=== PATIENT | female | born 1950 | race Caucasian/White ===

== ENCOUNTER → 2018-10-17 | Outpatient (CLI) | payer MEDICARE, OTHER ==
[~2018-10-17] MED LIST: ASP325T PO; ASP81TEC PO; ATEN1TAB3 PO; CATHETER FLUSH 10 ML SYR IV PRN; ERGO400C PO; HCT25T PO; LORA10TA7 PO; MNTL10T PO; MULT1CAP27 PO; NAPR-243 PO; OMEG1CAP51 PO; OMEP-10 PO; OXYB5TAB9 PO; POTA2TAB2 PO; PRAS10TA6 PO; REGADENOSON 0.4 MG/5 ML SYR (LEXISCAN) IV ONE; SIMV40TA4 PO
[2018-10-17 09:21] VITALS: BP 168/96
--- NOTE | 2018-10-17 14:41 | STRESS TEST ---
DATE OF SERVICE: 10/16/2018 RESTING AND POST REGADENOSON TECHNETIUM-99M TETROFOSMIN SPECT CT IMAGING ORDERING PHYSICIAN: Paty Hernandez APRN PRIMARY PHYSICIAN: Dr. Morillo. CLINICAL DIAGNOSES: Coronary artery disease. Baseline images were carried out after injection of 10.08 mCi of technetium-99m Tetrofosmin. This was followed by 0.4 mg regadenoson and 29.2 mCi of technetium-99m Tetrofosmin for stress imaging. The electrocardiogram showed sinus rhythm with subtle, nonspecific ST and T-wave abnormality that did not change significantly with regadenoson infusion. The patient tolerated the procedure well. Review of images at rest and following stress does not indicate significant perfusion defects consistent with significant myocardial ischemia or infarction. Gated images show normal global left ventricular systolic function with normal regional wall motion. Left ventricular ejection fraction is calculated to be 72%. Left ventricular end diastolic volume is 51 mL. TID is absent (1.04). CONCLUSIONS: 1. No evidence of significant myocardial ischemia or infarction on this study. 2. Normal regional wall motion. 3. Normal global left ventricular systolic function with a calculated ejection fraction of 72%. Job ID: [id number] DocumentID: [id number] Dictated Date: 10/17/2018 12:04:54 Chair Post Machine Operator Date: 10/17/2018 14:39:22 Dictated By: ZORA ALEGRIA MD, MA, FACP, FACC,
== END ==
LOC: CARD 06:48
PROVIDERS: ATTEND Nurse Practitioner Family
DX: I25.10 Atherosclerotic heart disease of native coronary artery without angina pectoris (principal); I65.29 Occlusion and stenosis of unspecified carotid artery; E78.5 Hyperlipidemia, unspecified; I10 Essential (primary) hypertension
CPT/HCPCS: 78452; 93017

== ENCOUNTER → 2018-10-24 | Outpatient (CLI) | payer MEDICARE, OTHER ==
[~2018-10-24] MED LIST changes: -CATHETER FLUSH 10 ML SYR IV PRN; +HOLD METFORMIN - RECEIVED CONTRAST 20 ML VIAL IV SCH; +IOHEXOL 350 MG/ML 100 ML (OMNIPAQUE 350) VIAL IV ONE; +NS 100 ML (IVPB) BAG IV ONE; -REGADENOSON 0.4 MG/5 ML SYR (LEXISCAN) IV ONE
[2018-10-24 07:45] LABS: BUN/CREATININE RATIO 24; CREATININE SERUM 0.88 MG/DL (0.60-1.30); GFR ESTIMATED > 60
--- NOTE | 2018-10-24 10:35 | Diagnostic Imaging Report ---
EXAMINATION: CT Chest with intravenous contrast. TECHNIQUE: Multiple contiguous axial images were obtained through the chest after the uneventful administration of intravenous contrast. All CT scans use one or more of the following dose optimizing techniques: automated exposure control, MA and/or KvP adjustment based on a patient size and exam type, or iterative reconstruction. HISTORY: Abnormal pulmonary function test. FINDINGS: No comparison available. The lungs are clear without edema or pneumonia. No pleural effusion or pneumothorax. No suspicious nodules. Heart size is normal. No pericardial effusion. Aorta is normal in caliber. There is no axillary, supraclavicular or mediastinal lymphadenopathy. There are moderate coronary artery calcifications. Limited views of the upper abdomen reveal a few renal cysts. There is a 15 mm indeterminate left adrenal nodule. There are no suspicious osseous lesions. IMPRESSION: 1. Clear lungs. 2. Indeterminate 15 mm left adrenal nodule. In the absence of a prior history of cancer, this is likely benign and a 12-month followup adrenal CT is recommended. Dictated by: Dictated on workstation # [id number]
== END ==
LOC: RAD 07:09
PROVIDERS: ATTEND Nurse Practitioner Family
DX: J98.4 Other disorders of lung (principal); J30.9 Allergic rhinitis, unspecified; E27.8 Other specified disorders of adrenal gland
CPT/HCPCS: 36415; 71260; 82565; 84520

== ENCOUNTER → 2019-12-19 | Outpatient (CLI) | payer MEDICARE, OTHER ==
[~2019-12-19] MED LIST changes: +CATHETER FLUSH 10 ML SYR IV PRN
--- NOTE | 2019-12-19 11:32 | Diagnostic Imaging Report ---
PROCEDURE: CT abdomen with contrast only. TECHNIQUE: Multiple contiguous axial images were obtained through the abdomen after the administration of intravenous contrast. Auto Exposure Controls were utilized during the CT exam to meet ALARA standards for radiation dose reduction. INDICATION: Adrenal nodule follow-up. COMPARISON: Correlation is made with CT chest study from 10/24/2018. FINDINGS: The exam was not performed utilizing an adrenal protocol which usually calls for a pre contrast sequence. Only post contrast dynamic and delayed imaging was performed. The previously noted left adrenal mass is stable at approximately 14 mm. Right adrenal gland is unremarkable. Lung bases are clear. No discrete liver mass is identified. Gallbladder is unremarkable. There is no biliary ductal dilatation. The pancreas and spleen are unremarkable. Right kidney is unremarkable. Left kidney contains a 4.5 cm cyst in the upper pole. Aorta is heavily calcified but nonaneurysmal. No central retroperitoneal or mesenteric lymphadenopathy is seen. Bowel loops are unremarkable. There is no free fluid. Degenerative changes in the lumbar spine are noted. IMPRESSION: 1. Stable left adrenal mass when compared with prior exam from 10/24/2018. Continued follow-up in six months is recommended. At next follow-up, study should be performed utilizing adrenal protocol with and without IV contrast. Dictated by: Dictated on workstation # [id number]
== END ==
LOC: RAD 10:45
PROVIDERS: ATTEND Family Medicine
DX: E27.8 Other specified disorders of adrenal gland (principal)
CPT/HCPCS: 74160

== ENCOUNTER → 2020-11-04 | Outpatient (CLI) | payer MEDICARE, OTHER ==
[~2020-11-04] MED LIST changes: -HOLD METFORMIN - RECEIVED CONTRAST 20 ML VIAL IV SCH; -IOHEXOL 350 MG/ML 100 ML (OMNIPAQUE 350) VIAL IV ONE; -NS 100 ML (IVPB) BAG IV ONE; +REGADENOSON 0.4 MG/5 ML SYR (LEXISCAN) IV ONE
[2020-11-04 09:18] VITALS: BP 182/90
[2020-11-04 09:25] VITALS: BP 173/101
--- NOTE | 2020-11-04 15:43 | STRESS TEST ---
DATE OF SERVICE: 11/04/2020 RESTING AND POST REGADENOSON TECHNETIUM-99M TETROFOSMIN SPECT CT IMAGING ORDERING PHYSICIAN: Dr. Martinez. PRIMARY PHYSICIAN: Dr. Morillo. CLINICAL DIAGNOSIS: Coronary artery disease. Baseline images were carried out after injection of 10.74 mCi of technetium-99m Tetrofosmin. This was followed by 0.4 mg of Regadenoson and 31.8 mCi of technetium-99m Tetrofosmin for stress imaging. The electrocardiogram showed sinus rhythm at baseline. It did not change significantly with the Regadenoson infusion. There was mild nonspecific ST abnormality in the inferolateral region. Review of images at rest and following stress does not indicate any distinct perfusion defect that might indicate ischemia or infarction. Gated images show a normal global left ventricular systolic function with normal regional wall motion. Left ventricular ejection fraction is calculated to be 72%. Left ventricular end diastolic volume is 50 mL. TID is absent (1.1). CONCLUSIONS: 1. No evidence of any significant myocardial ischemia or infarction on this study. 2. Normal regional wall motion. 3. Normal global left ventricular systolic function with a calculated ejection fraction of 72%. Job ID: [id number] DocumentID: [id number] Dictated Date: 11/04/2020 13:27:12 Mineralogy Teacher Date: 11/04/2020 15:42:41 Dictated By: ZORA MARTINEZ MD, MA, FACP, FACC,
== END ==
LOC: CARD 08:15
PROVIDERS: ATTEND Internal Medicine Cardiovascular Disease
DX: I25.10 Atherosclerotic heart disease of native coronary artery without angina pectoris (principal)
CPT/HCPCS: 78452; 93017; A9502

== ENCOUNTER 2021-01-27 10:41 | Outpatient (CLI) | payer MEDICARE, OTHER ==
[~2021-01-27] VITALS: Ht 165.1 cm; Wt 86.2 kg
[~2021-01-27 10:41] MED LIST changes: -CATHETER FLUSH 10 ML SYR IV PRN; -REGADENOSON 0.4 MG/5 ML SYR (LEXISCAN) IV ONE
[2021-01-27 10:45] VITALS: BP 114/59
[2021-01-27] MEDS ORDERED: BAMLANIVIMAB 700 MG/ETESEVIMAB 1,400 MG IN NS IV ONE ×3 (11:00)
[2021-01-27] MEDS ORDERED: diphenhydrAMINE 50 MG/ML INJ (BENADRYL) IV PRN (11:00)
[2021-01-27] MEDS ORDERED: ACETAMINOPHEN 500 MG TAB (TYLENOL) PO PRN (11:00)
[2021-01-27] MEDS ORDERED: EPINEPHrine INJECTION 1 MG/ML AMP IM PRN (11:00)
[2021-01-27] MEDS ORDERED: ONDANSETRON 4 MG/2 ML (SDV) Z0FRAN IV PRN (11:00)
[2021-01-27 11:32] VITALS: BP 104/57
== END 2021-01-27 12:11 | disposition home or self-care (01) ==
LOC: INFUSION 10:41
PROVIDERS: ATTEND Nurse Practitioner Family
DX: U07.1 COVID-19 (principal)